=== PATIENT | male | born 1975 | race Caucasian/White ===

== ENCOUNTER 2019-08-06 20:59 | Emergency (ER) | payer SELFPAY ==
[2019-08-06 21:20] VITALS: BP 144/102; PULSE 87; RESP 18; TEMP 36.4; O2SAT 96; BMI 21.7
[2019-08-06 23:28] VITALS: RESP 18
--- NOTE | 2019-08-06 23:54 | W.ED.GENADLT ---
HPI - General Adult General: Chief complaint: General Medical Stated complaint: Mult complaints Time Seen by Provider: 08/06/19 23:52 Source: patient Mode of arrival: ambulatory Limitations: no limitations History of Present Illness: HPI narrative: 44 yo m came to the er pov for Severity: mild Associated symptoms: Deny chest pain, confusion, dyspnea, headache(s), nausea, rash, palpitations or vomiting Review of Systems Const: Denies: fever or chills Eyes: Denies: change in vision or blurry vision ENMT: Denies: painful swallowing, swelling of lips/tongue, bleeding gums, dental pain, Change in hearing, nose bleeds, post nasal drip or facial/sinus pain Card: Denies: chest pain or palpitations Resp: Denies: shortness of breath GI: Denies: nausea or vomiting : Denies: difficulty urinating, painful urination, urinary frequency, urinary urgency or blood in urine Musc: Denies: neck pain, back pain, redness or joint warmth Skin/Breast: Denies: rash Neuro: Denies: headache or confusion Psych: Denies: anxiety, visual hallucinations or auditory hallucinations PFSH ED PFSH: Statuses (acute, chronic, etc) shown below reflect problem list status as previously entered and may not be historically accurate Social History Smoking and tobacco status: current every day smoker Physical Exam Const: COMMON NORMALS: alert GENERAL APPEARANCE: well developed ORIENTATION/CONSCIOUSNESS: Yes awake, Yes oriented to person, Yes oriented to place and Yes oriented to time HENMT: COMMON NORMALS: normocephalic, external ears normal, external nose normal and moist oral mucous membranes HEAD & SCALP: normocephalic; no scalp tenderness FACE & SINUS: normal facial exam NOSE: external nose normal and no nasal discharge EXTERNAL EAR: Yes external ears normal MOUTH: tongue normal TEETH & GINGIVA: no abnormal tooth and associated gingiva THROAT: posterior oropharynx normal; no peritonsillar mass Eye: COMMON NORMALS: PERRL, EOMs intact bilaterally and conjunctivae normal EYELID: eyelids normal CONJUNCTIVA: Yes conjunctivae normal PUPIL: Yes PERRL Neck/C-Spine: COMMON NORMALS: full ROM GENERAL: Yes anterior neck swelling and No tracheal deviation CERVICAL SPINE: Yes normal cervical lordosis, No cervical spine tenderness, No step off deformity, No paracervical muscle tenderness and No paracervical muscle spasm Chest: COMMONS NORMALS: inspection of chest normal CHEST: Yes symmetrical chest wall rise and No tenderness Resp: COMMON NORMALS: clear to auscultation bilaterally EFFORT & INSPECTION: No tachypneic, No respiratory distress, No retractions, No uses accessory muscles and No tracheal deviation AUSCULTATION: clear to auscultation bilaterally, no rhonchi, no wheezes and lung sounds not diminished Cardio: COMMON NORMALS: regular rate and regular rhythm RATE: regular rate RHYTHM: regular rhythm HEART SOUNDS: no murmurs PERIPHERAL PULSES: radial pulses present GI: INSPECTION: No abdominal distension AUSCULTATION: No hyperactive bowel sounds and No hypoactive bowel sounds PALPATION: No tender, No guarding and No rigid PERCUSSION: no dullness to percussion and no tympanic to percussion : COMMON NORMALS: Yes no CVA tenderness BLADDER/KIDNEY EXAM: Yes no CVA tenderness Back/Pelvis: COMMON NORMALS: no CVA tenderness PELVIS: Yes no pain with anterior-posterior compression and Yes no pain with lateral compression Neuro: SENSORIUM/ORIENTATION: Yes alert, Yes oriented to person, Yes oriented to place and Yes oriented to time Psych: COMMON NORMALS: mental status grossly normal and speech normal SPEECH: Yes normal speech Skin: COMMON NORMALS: no rashes or lesions noted GENERAL SKIN EXAM: no rashes or lesions noted Course Vital Signs: Vital signs: Vital Signs Temperature 97.6 F 08/06/19 21:20 Pulse Rate 87 08/06/19 21:20 Respiratory Rate 18 08/06/19 21:20 Blood Pressure 144/102 08/06/19 21:20 Pulse Oximetry 96 08/06/19 21:20 Discharge Plan Discharge Prescriptions: No Action Depakote 500 mg Tablet,Delayed Release (Dr/Ec) 500 mg PO BID RF: 0 trazodone 150 mg Tablet RF: 0 Coding Level of Care Code ED Seismograph Shooter for Clara Mcneil
== END 2019-08-07 00:20 | disposition left against medical advice (07) ==
PROVIDERS: Emergency Provider Emergency Medicine
DX: Z53.21 Procedure and treatment not carried out due to patient leaving prior to being seen by health care provider (principal)
CPT/HCPCS: 99281

== ENCOUNTER 2019-08-07 08:15 | Emergency (ER) | payer SELFPAY ==
[2019-08-07 08:17] VITALS: BP 119/90; PULSE 80; RESP 18; TEMP 36.4; O2SAT 96; BMI 21.7
--- NOTE | 2019-08-07 08:25 | W.ED.FEVER ---
HPI - Fever General: Chief Complaint: Fever Stated Complaint: fevers/abd issues Time Seen by Provider: 08/07/19 08:25 Source: patient Mode of arrival: ambulatory Limitations: no limitations History of Present Illness: HPI Narrative: Patient is a 44-year-old male who presents to ED today with complaints of not feeling well over the past few days; patient states he has had nausea, vomiting, diarrhea, cough, and subjective fevers as well as a sore throat; patient states he has had 3-4 episodes of vomiting and diarrhea daily-nonbloody; denies sick contacts MD elicited complaint: fever (subjective ) Onset (ago): day(s) Exacerbating factors: nothing Relieving factors: nothing Associated symptoms: Reports cough, diarrhea, nausea and vomiting; Deny abdominal pain, chills, chest pain or dysuria Treatments prior to arrival fever: none Review of Systems Const: Reports: fever (subjective); Denies: chills or body aches Eyes: Denies: change in vision or blurry vision Card: Denies: chest pain, palpitations, irregular heart rhythm, lightheadedness, syncope or shortness of breath on exertion Resp: Reports: productive cough and chest congestion; Denies: shortness of breath, wheezing, stridor, pain on inspiration, change in phlegm color or coughing up blood GI: Reports: nausea, vomiting and diarrhea; Denies: abdominal pain, vomiting blood, coffee grounds in vomit, difficulty swallowing, heartburn/indigestion, excessive passing of gas, fecal incontinence or painful bowel movements : Denies: difficulty urinating or painful urination Musc: Denies: neck pain, back pain or joint pain Skin/Breast: Denies: rash PFSH ED PFSH: Statuses (acute, chronic, etc) shown below reflect problem list status as previously entered and may not be historically accurate Social History Smoking and tobacco status: current every day smoker Physical Exam Narrative: EXAM NARRATIVE: psychomotor agitation suspicious for drug use Const: COMMON NORMALS: no apparent distress, oriented x3 and alert GENERAL APPEARANCE: cooperative HENMT: COMMON NORMALS: normocephalic, head/scalp atraumatic, external ears normal, EAC's normal, TM's normal bilaterally and external nose normal HEAD & SCALP: normal to inspection, normocephalic and atraumatic FACE & SINUS: normal facial exam NOSE: external nose normal EXTERNAL EAR: Yes external ears normal EXTERNAL AUDITORY CANAL: EAC's normal TYMPANIC MEMBRANE: TM's normal bilaterally MOUTH: oral and palatal mucosa normal THROAT: posterior oropharynx normal, tonsils normal and uvula midline Eye: COMMON NORMALS: PERRL and EOMs intact bilaterally PUPIL: Yes PERRL Neck/C-Spine: COMMON NORMALS: full ROM, no lymphadenopathy, supple and no meningeal signs Resp: COMMON NORMALS: normal respiratory effort, no retractions, no use of accessory muscles and clear to auscultation bilaterally AUSCULTATION: clear to auscultation bilaterally Cardio: COMMON NORMALS: regular rate and regular rhythm RATE: regular rate RHYTHM: regular rhythm GI: COMMON NORMALS: normal to inspection, nondistended, normoactive bowel sounds, soft to palpation, non-tender, no hepatosplenomegaly and no masses PALPATION: Yes soft and Yes no hepatosplenomegaly Back/Pelvis: COMMON NORMALS: thoracic and lumbar spine normal to inspection Extremity: COMMON NORMALS: normal to inspection GENERAL: Yes normal exam except as noted Neuro: COMMON NORMALS: oriented x3 SENSORIUM/ORIENTATION: Yes alert MENINGEAL SIGNS: Yes no meningeal signs Course Vital Signs: Vital signs: Vital Signs Temperature 97.6 F 08/07/19 08:17 Pulse Rate 73 08/07/19 09:39 Respiratory Rate 15 08/07/19 09:39 Blood Pressure 131/83 08/07/19 09:39 Pulse Oximetry 97 08/07/19 09:39 MDM - Fever MDM Narrative: Medical decision making narrative: pt noted in WR prior to him checking in eating and drinking several cups of coffee; he has had no vomiting/diarrhea while here Lab Data: Labs: Lab Results 08/07/19 08/07/19 08/07/19 Range/Units 08:28 08:28 08:35 WBC 7.5 (4.0-10.0) 10^3/ uL RBC 4.93 (4.1-5.3) 10^6/u L Hgb 14.4 (11.7-16.6) g/dL Hct 43.1 (42.0-52.0) % MCV 87.4 (80-94) fL MCH 29.2 (28.0-34.0) pg MCHC 33.4 (30.0-36.0) g/dL RDW 13.1 (12.1-15.1) % Plt Count 282 (130-400) 10^3/c mm MPV 8.8 (7.4-10.4) fL Neut % (Auto) 64.6 % Lymph % (Auto) 19.3 % [place] % (Auto) 11.6 % Eos % (Auto) 3.7 % Baso % (Auto) 0.5 % Neut # (Auto) 4.9 (1.8-7.7) 10^3/u L Lymph # (Auto) 1.5 (0.8-4.8) 10^3/u L [place] # (Auto) 0.9 (0.2-0.9) 10^3/u L Eos # (Auto) 0.3 (0.0-0.8) 10^3/u L Baso # (Auto) 0.0 (0.0-0.1) 10^3/u L Nucleated RBC % (a uto) 0 % Nucleated RBCs # 0.0 /100WBC Sodium 140 (136-145) mmol/L Potassium 3.7 (3.5-5.1) mmol/L Chloride 106 (98-107) mmol/L Carbon Dioxide 22 (22-29) mmol/L Anion Gap 15.7 (5-19) BUN 9 (6-20) mg/dL Creatinine 1.0 (0.7-1.2) mg/dL GFR Calculation 81.9 L (90-130) mL/min Glucose 171 H (74-109) mg/dL Calcium 9.9 (8.6-10.0) mg/Dl Total Bilirubin 0.4 (0.15-1.2) mg/dL AST 16 (0-40) U/L ALT 14 (0-41) U/L Alkaline Phosphata se 67 (40-130) IU/L Total Protein 6.6 (6.6-8.7) g/dL Albumin 5.2 (3.5-5.2) g/dL Globulin 1.4 (1.3-4.6) g/dL Lipase 30 (13-60) U/L Influenza Type A A g (Negative) POC Influenza B Ag (Negative) Group A Strep Rapi d Negative (Negative) 08/07/19 Range/Units 08:35 WBC (4.0-10.0) 10^3/ uL RBC (4.1-5.3) 10^6/u L Hgb (11.7-16.6) g/dL Hct (42.0-52.0) % MCV (80-94) fL MCH (28.0-34.0) pg MCHC (30.0-36.0) g/dL RDW (12.1-15.1) % Plt Count (130-400) 10^3/c mm MPV (7.4-10.4) fL Neut % (Auto) % Lymph % (Auto) % [place] % (Auto) % Eos % (Auto) % Baso % (Auto) % Neut # (Auto) (1.8-7.7) 10^3/u L Lymph # (Auto) (0.8-4.8) 10^3/u L [place] # (Auto) (0.2-0.9) 10^3/u L Eos # (Auto) (0.0-0.8) 10^3/u L Baso # (Auto) (0.0-0.1) 10^3/u L Nucleated RBC % (a uto) % Nucleated RBCs # /100WBC Sodium (136-145) mmol/L Potassium (3.5-5.1) mmol/L Chloride (98-107) mmol/L Carbon Dioxide (22-29) mmol/L Anion Gap (5-19) BUN (6-20) mg/dL Creatinine (0.7-1.2) mg/dL GFR Calculation (90-130) mL/min Glucose (74-109) mg/dL Calcium (8.6-10.0) mg/Dl Total Bilirubin (0.15-1.2) mg/dL AST (0-40) U/L ALT (0-41) U/L Alkaline Phosphata se (40-130) IU/L Total Protein (6.6-8.7) g/dL Albumin (3.5-5.2) g/dL Globulin (1.3-4.6) g/dL Lipase (13-60) U/L Influenza Type A A g Negative (Negative) POC Influenza B Ag Negative (Negative) Group A Strep Rapi d (Negative) Imaging Data^: CXR: Radiologist's impression: [address] [address] XRay Report Signed Patient: Poli Arellano MR#: [id number] : 1975 Acct:[id number] Age/Sex: 44 / M ADM Date: 08/07/19 Loc: ER Attending Dr: Ordering Physician: Corina Snyder Date of Service: 08/07/19 Procedure(s): XR chest 1V portable 02013 Accession Number(s): [id number] cc: Corina Snyder PROCEDURE INFORMATION: Exam: XR Chest, 1 View Exam date and time: 08/07/2019 8:29 AM Age: 44 years old Clinical indication: Cough; Additional info: Cough/congestion TECHNIQUE: Imaging protocol: XR of the chest Views: 1 view. COMPARISON: No relevant prior studies available. FINDINGS: Lungs: Unremarkable. No consolidation. Pleural space: Unremarkable. No pleural effusion. No pneumothorax. Heart/Mediastinum: Unremarkable. No cardiomegaly. Bones/joints: Unremarkable. XR/XR chest 1V portable [id number] IMPRESSION: No acute findings. Dictated By: Sidney Sousa MD 08/07/1932 Signed By: Sidney Sousa MD 08/07/19 0934 Discharge Plan Discharge Patient Disposition: Home, Self-Care Clinical Impression: Viral illness Condition: Stable Prescriptions: No Action lisinopril RF: 0 divalproex [Depakote] 500 mg Tablet,Delayed Release (Dr/Ec) 500 mg PO BID RF: 0 trazodone 150 mg Tablet 150 mg PO BEDTIME RF: 0 Discharge Orders: Discharge Order (Routine); Ordered 08/07/19 Ordered By: Corina Snyder Discharge Diet: Usual diet Discharge Activity: Resume usual activity Discharge Date/Time: 08/07/19 09:46 Coding Level of Care Code ED Human Resources Professional for Chg Fwd Exam Problem Focused
--- NOTE | 2019-08-07 08:28 | XRR_ITS ---
PROCEDURE INFORMATION: Exam: XR Chest, 1 View Exam date and time: 08/07/2019 8:29 AM Age: 44 years old Clinical indication: Cough; Additional info: Cough/congestion TECHNIQUE: Imaging protocol: XR of the chest Views: 1 view. COMPARISON: No relevant prior studies available. FINDINGS: Lungs: Unremarkable. No consolidation. Pleural space: Unremarkable. No pleural effusion. No pneumothorax. Heart/Mediastinum: Unremarkable. No cardiomegaly. Bones/joints: Unremarkable. XR/XR chest 1V portable [id number] IMPRESSION: No acute findings.
[2019-08-07] MEDS: sodium chloride 0.9% 1,000 ML 999 ML IV (08:32)
[2019-08-07 08:35] LABS: Basophils % 0.5 %; Eosinophils # 0.3 10^3/uL (0.0-0.8); Eosinophils % 3.7 %; Hematocrit 43.1 % (42.0-52.0); Hemoglobin 14.4 g/dL (11.7-16.6); Lymphocytes # 1.5 10^3/uL (0.8-4.8); Lymphocytes % 19.3 %; Mean Corpuscular HGB Conc 33.4 g/dL (30.0-36.0); Mean Corpuscular Hemoglobin 29.2 pg (28.0-34.0); Mean Corpuscular Volume 87.4 fL (80-94); Mean Platelet Volume 8.8 fL (7.4-10.4); Monocytes # 0.9 10^3/uL (0.2-0.9); Monocytes % 11.6 %; Neutrophils # 4.9 10^3/uL (1.8-7.7); Neutrophils % 64.6 %; Nucleated Red Blood Cells % 0 %; Platelet Count 282 10^3/cmm (130-400); Red Blood Count 4.93 10^6/uL (4.1-5.3); Red Cell Distribution Width 13.1 % (12.1-15.1); White Blood Count 7.5 10^3/uL (4.0-10.0)
--- NOTE | 2019-08-07 08:48 | PC.PHAR ---
PT STATES HE HAS ANOTHER MEDICATION HE TAKES HES NOT SURE WHAT IT IS FOR OR WHAT THE NAME IS. 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
--- NOTE | 2019-08-07 08:51 | PC.NURSE ---
Patient very animated consistent with illicit drug use. Patient denies drug use. Patient has redness and tenderness along right AC space.
--- NOTE | 2019-08-07 08:56 | PC.NURSE ---
Patient ambulated to restroom for urine collection. Sample sent to lab. Currently no orders for urine
[2019-08-07 09:05] LABS: Alanine Aminotransferase 14 U/L (0-41); Albumin Level 5.2 g/dL (3.5-5.2); Alkaline Phosphatase 67 IU/L (40-130); Anion Gap 15.7 (5-19); Aspartate Amino Transferase 16 U/L (0-40); Blood Urea Nitrogen 9 mg/dL (6-20); Calcium 9.9 mg/Dl (8.6-10.0); Carbon Dioxide 22 mmol/L (22-29); Chloride 106 mmol/L (98-107); Globulin 1.4 g/dL (1.3-4.6); Glomerular Filtration Rate 81.9 mL/min (90-130); Glucose 171 mg/dL (74-109); Lipase 30 U/L (13-60); Potassium 3.7 mmol/L (3.5-5.1); Sodium 140 mmol/L (136-145); Total Bilirubin 0.4 mg/dL (0.15-1.2); Total Protein 6.6 g/dL (6.6-8.7)
[2019-08-07 09:08] LABS: Rapid Strep A Test Negative (Negative)
[2019-08-07 09:19] LABS: Influenza A by IFA Negative (Negative)
[2019-08-07 09:20] LABS: Influenza B by IFA Negative (Negative)
[2019-08-07 09:39] VITALS: BP 131/83; PULSE 73; RESP 15; O2SAT 97
== END 2019-08-07 09:46 | disposition home or self-care (01) ==
PROVIDERS: Emergency Provider Physician Assistant
DX: B34.9 Viral infection, unspecified (principal); F17.210 Nicotine dependence, cigarettes, uncomplicated
CPT/HCPCS: 71045; 80053; 83690; 85025; 87077; 87081; 87804; 87880; 96360; 99281; J7030

== ENCOUNTER 2019-08-29 21:32 | Emergency (ER) | payer SELFPAY ==
[2019-08-29 21:40] VITALS: BP 123/84; PULSE 66; RESP 18; TEMP 36.8; O2SAT 98; BMI 22.4
--- NOTE | 2019-08-29 21:40 | ED_ITS ---
Entered by Berenice Verduzco, acting as scribe for HPI - Chest Pain General: Chief Complaint: Chest Pain Stated Complaint: CP Time Seen by Provider: 08/29/19 21:40 Source: patient Mode of arrival: EMS Limitations: no limitations History of Present Illness: HPI narrative: 44 yo Male presents to ED with complaint of chest pain. Pt states that he had a cardiac episode while he was in [place]. Pt states that he has had some chest pains the past couple of days and tonight his called 911. Pt states that he thinks it was anxiety causing his chest pain and that he doesn't want to be here. Pt agrees to get a chest x-ray and an EKG to rule out anything life threatening before leaving the ED. MD complaint: chest pain Onset (ago): day(s) Timing of current episode: episodic and still present Prior episodes: Yes Onset: during rest Pain location: left chest Pain radiation: none Relieving factors: nothing Exacerbating factors: nothing Associated symptoms: Reports no associated symptoms; Deny abdominal pain, dyspnea, fever(s), nausea or vomiting Treatment prior to arrival: none Review of Systems Const: Denies: fever, chills, body aches or change in appetite Eyes: Denies: blurry vision or eye discomfort ENMT: Denies: throat pain or dental pain Card: Reports: chest pain Resp: Denies: shortness of breath GI: Denies: abdominal pain, nausea, vomiting or diarrhea : Denies: painful urination Musc: Denies: neck pain or back pain Skin/Breast: Denies: rash Neuro: Denies: headache Psych: Reports: anxiety; Denies: depression Zen/Lymph: Denies: easy bruising All/Imm: Denies: hives PFSH ED PFSH: Statuses (acute, chronic, etc) shown below reflect problem list status as previously entered and may not be historically accurate Social History Smoking and tobacco status: current every day smoker Physical Exam Const: COMMON NORMALS: no apparent distress, oriented x3 and healthy appearing HENMT: COMMON NORMALS: normocephalic and head/scalp atraumatic HEAD & SCALP: normocephalic and atraumatic Eye: COMMON NORMALS: PERRL and EOMs intact bilaterally PUPIL: Yes PERRL Neck/C-Spine: COMMON NORMALS: full ROM and supple Chest: COMMONS NORMALS: inspection of chest normal and palpation of chest normal Resp: COMMON NORMALS: normal respiratory effort, no retractions, no use of accessory muscles and clear to auscultation bilaterally AUSCULTATION: clear to auscultation bilaterally Cardio: COMMON NORMALS: regular rate, regular rhythm and no murmurs RATE: regular rate RHYTHM: regular rhythm GI: COMMON NORMALS: normal to inspection, nondistended, normoactive bowel sounds, soft to palpation, non-tender and no masses PALPATION: Yes soft Extremity: COMMON NORMALS: normal to inspection and full ROM Neuro: COMMON NORMALS: oriented x3, moves all extremities and no focal motor deficits Psych: COMMON NORMALS: mental status grossly normal, thought process normal and cooperative THOUGHT PROCESS: normal thought process Skin: COMMON NORMALS: no rashes or lesions noted and no wounds GENERAL SKIN EXAM: no rashes or lesions noted Course Vital Signs: Vital signs: Vital Signs Temperature 98.2 F 08/29/19 21:40 Pulse Rate 66 08/29/19 21:40 Respiratory Rate 18 08/29/19 21:40 Blood Pressure 123/84 08/29/19 21:40 Pulse Oximetry 98 08/29/19 21:40 MDM - Chest Pain MDM Narrative: Medical decision making narrative: Patient presents here with chest pain since resolved. Patient went immediately row by ambulance he states that he does know to be here and his talked him into being here. I was able to at least convince him to get an EKG and x-ray. Both of them were normal. He refuses any blood draw states he now would like to go home. Patient is young and healthy with few risk factors. Informed if he changes his mind and like to get lab work he is to return. Patient is to follow-up with his primary care doctor in 3 to 5 days. Imaging Data^: CXR: Attestation: I personally reviewed and interpreted this imaging study as follows: My impression: no acute abnormality EKG Data^: EKG 1: Attestation: I personally reviewed and interpreted this EKG as follows: EKG interpretation date: 08/29/19 EKG interpretation time: 21:49 Interpretation: nsr hr [address] or t wave abnormalities qrs 94 [id number] Discharge Plan Discharge Patient Disposition: Home, Self-Care Clinical Impression: Atypical chest pain Condition: Stable Prescriptions: No Action lisinopril RF: 0 divalproex [Depakote] 500 mg Tablet,Delayed Release (Dr/Ec) 500 mg PO BID RF: 0 trazodone 150 mg Tablet 150 mg PO BEDTIME RF: 0 Discharge Orders: Discharge Order (Routine); Ordered 08/29/19 Ordered By: Renny Pollock Discharge Diet: Advance as tolerated Discharge Activity: Resume usual activity Patient Instructions: Chest Pain (ED) Discharge Date/Time: 08/29/19 22:00 Coding Level of Care Code ED Np for Chg Fwd Exam Problem Focused The documentation recorded by the Dax marrero Carmen, accurately reflects the service I personally performed and the decisions made by Maris denney Korby, MD
--- NOTE | 2019-08-29 21:40 | XR_ITS ---
WS: [id number] CHEST 2 VIEWS HISTORY: cp COMPARISON: 08/07/2019 Lungs: Hyperinflated lungs with emphysema. No pneumonia or nodules. Cardiac size: Normal. Mediastinum/Aorta: Normal mediastinum. Bones: Normal. XR/XR chest 2V* [id number] IMPRESSION: Mild emphysema with no acute cardiopulmonary disease.
--- NOTE | 2019-08-29 21:40 | ECG_ITS ---
Measurements Intervals [place] Rate: 62 P: 77 LA: 156 QRS: 77 QRSD: 94 T: 81 QT: 384 QTc: 391 SINUS RHYTHM No previous ECG available for comparison Electronically Signed On 08-30-2019 18:32:47 SOURCING ASSISTANT by Franky Lyons M.D. [email or web address]
== END 2019-08-29 22:00 | disposition home or self-care (01) ==
LOC: ER 21:58
PROVIDERS: Emergency Provider Emergency Medicine
DX: R07.89 Other chest pain (principal); F17.210 Nicotine dependence, cigarettes, uncomplicated
CPT/HCPCS: 71046; 93005; 99282; 99283